=== PATIENT | female | born 1995 | race Caucasian/White ===

== ENCOUNTER 2018-09-30 14:31 | Inpatient (IN) | payer MEDICAID, OTHER ==
[~2018-09-30] VITALS: Ht 157.5 cm; Wt 87.1 kg
[2018-09-30 14:54] VITALS: Ht 157.5 cm; Wt 87.1 kg
[2018-09-30] MEDS ORDERED: PREN-93 PO (14:54)
[2018-09-30 14:55] VITALS: BP 116/74; PULSE 123; RESP 18
[2018-09-30] MEDS ORDERED: OXYTOCIN 30 UNITS/LR 500 ML IV SCH ×3 (16:30)
[2018-09-30] MEDS ORDERED: METHYLERGONOVINE 0.2 MG INJ IM PRN (16:30)
[2018-09-30] MEDS ORDERED: CARBOPROST 250 MCG INJ IM PRN (16:30)
[2018-09-30] MEDS ORDERED: IBUPROFEN 600 MG TAB PO PRN (16:30)
[2018-09-30] MEDS ORDERED: BUTORPHANOL 2 MG INJ IV PRN ×2 (16:30→18:00)
[2018-09-30] MEDS ORDERED: AMPICILLIN 2 GM/NS (PMX) 100 ML IV ONE ×2 (16:30→18:00)
[2018-09-30] MEDS ORDERED: OXYTOCIN 30 UNITS/LR 500 ML IV PRN (16:30)
[2018-09-30] MEDS ORDERED: MISOPROSTOL 200 MCG TAB PR PRN (16:30)
[2018-09-30] MEDS ORDERED: LIDOCAINE 1% (MPF) 30 ML INJ INJ PRN (16:30)
--- NOTE | 2018-09-30 16:45 | TRIAGE ---
OB Triage Datetime Report Generated by CPN: 09/30/2018 16:45 Datetime: 09/30/2018 16:33 Vaginal Exam Dilatation (cms): 2.0 Effacement (%): 70 Station: -3 Exam By: ariana Vaginal Bleeding: None Cervix, Consistency: Soft Cervix, Position: Posterior Presentation 'A': Cephalic Datetime: 09/30/2018 14:52 Assessment Type: Triage Maternal Assessment Level of Consciousness: Fully Conscious DTR's/Clonus: DTRs 2+; No Clonus Headache: Denies Blurred Vision: No Respiratory Effort: Unlabored; Regular Rhythm; Equal Expansion Breath Sounds, Left: Clear and Equal Breath Sounds, Right: Clear and Equal Nausea/Vomiting: Denies RUQ Epigastric Pain: Denies Lower Extremities Edema: None Degree: None Upper Extremities Edema: None Degree: None Facial Edema: None Fall Risk Assessment History of Falling: (0) No Secondary Diagnosis: (0) No Ambulatory Aid: (0) Bedrest/Nurse Assist IV Therapy: (0) No Gait: (0) Normal/Bedrest/Immobile Mental Status: (0) Oriented to Own Ability Fall Score: 0 Fall Risk Score Definition: No Risk: No action required Datetime: 09/30/2018 14:49 Time of Arrival: 09/30/2018 14:23 EGA: 40.6 Arrived By: Ambulatory Arrived From: Home Chief Complaint: PT. SENT IN TO BE EVAL. FOR POST DATES. Movement: Present Contractions: Denies/Absent Rupture of Membranes: Denies Vaginal Bleeding: None Vaginal Discharge: Denies Recent Sexual Intercouse: Denies Abdominal Trauma: Not Applicable Patient Complaints: None Time Provider Notified: 09/30/2018 16:25 Provider Notified: [facility] Initial Plan: GENE
--- NOTE | 2018-09-30 17:22 | HP ---
Date/Time of Note Date/Time of Note DATE: 09/30/18 TIME: 17:20 OB - History Hx of Present Free Text/Dictation 22 years old 3 para 2-0-0-2 with single intrauterine at 40 weeks and 6 days with a YAEL of 09/24/2018 sent from her primary OB office for further management for postdate. She states good movement. She denies nausea, vomiting, shortness of breath, chest pain, headache, visual changes, va ginal bleeding or LOF. Chief Complaint: Postdate Estimated Due Date: Sep 24, 2018 : 3 Para: 2 Spontaneous : 0 Therapeutic : 0 Care: Good Care Ultrasounds: Normal mid trimester US Obstetrical Complications: None Medical Complications: None Past Family/Social History * Past Medical, Surgical, Family and Obstetric Histories reviewed from chart. Rubella: immune RPR/VDRL: Negative GBS Status: Unknown HBsAG: Negative OB Admission Exam Vital Signs Vital Signs Vital Signs Date Temp Pulse Resp B/P (MAP) Pulse Ox O2 O2 Flow FiO2 Time Delivery Rate 09/30/18 98.3 123 18 116/74 Room Air 14:55 (88) Physical Exam HEENT: WNL Heart: Rhythm Normal Lungs: Clear Abdomen: WNL Cervical Dilatation: 2cm Effacement: 75% Station: -3 Membranes: Intact Heart Rate: 130's Accelerations: Accelerations Present Decelerations: No Decelerations Varibility: Moderate Contractions on Admission: 6-10 Minutes Apart Intensity: Mild OB Assessment/Plan Other plan: 22 years old -0-0-2 with single intrauterine at 40 weeks and 6 days in early labor - FHR: No sign of metabolic acidosis- Category I - Continuous EFM, toco - CBC, blood type and screen - Analgesia options with R/B/A discussed in detail with patient - Epidural per patient request - Please see the orders - Rubella: Immune - GBS: Unknown, ampicillin for GBS prophylaxis Admission, procedures, expectations, risks and possible complications have been discussed in detail with the patient. Risk of vaginal delivery including but not limited to bleeding, infection, cervical laceration, placental retention, injury to fetus, blood transfusion, blood transfusion related infection, risk of anesthesia, adhesion, cervical laceration, episiotomy/laceration, possible delivery with risk of bleeding, infection, injury to other organs (bowel, bladder, ureter, vessels, nerves), injury to fetus, blood transfusion, blood transfusion related infection, risk of anesthesia, scar and hernia formation, needs for future , removal of uterus or any other indicated surgery discussed with the patient. She expressed understanding and repeats the risks. All of her questions were answered. She signed the informed consent. PHYSICIAN'S VERIFICATION OF INFORMED CONSENT The patient was counseled regarding the procedure, its indications, risks, potential complications and alternatives and any questions were answered. Consent was obtained. PLANNED PROCEDURE/TREATMENT: Vaginal delivery, episiotomy, repair of laceration possible delivery [] MARIA ISABEL SAUNDERS September 30, 2018 17:22
[2018-09-30] MEDS: LACTATED RINGER'S 1,000 ML IV SCH (17:51)
[2018-09-30] MEDS ORDERED: AMPICILLIN 1 GM/NS (PMX) 50 ML IV SCH (20:30)
[2018-09-30] MEDS: AMPICILLIN 1 GM/NS (PMX) 50 ML IV SCH (22:27)
[2018-10-01] MEDS: LACTATED RINGER'S 1,000 ML IV SCH ×4 (01:55→11:46)
--- NOTE | 2018-10-01 02:10 | QN ---
Documentation Comment progress note labor and delivery patient seen and evaluated no complaints vs stable afebrile ab gravid, nt extremity no edema no calf tenderness ve 2-3/70/-3 intact fhr cat 1 toco irregular a/ iup at 41 wks ga, admitted for post edc induction care limited suspected macrosomia. patient declines CD for suspected macrosomia p/ patient again explained the risk of shoulder dystocia in detail and all question were answered she desire to continue with pitocin induction TIFFANY SANTOYO MD October 01, 2018 02:10
[2018-10-01] MEDS: AMPICILLIN 1 GM/NS (PMX) 50 ML IV SCH ×4 (02:28→14:52)
[2018-10-01] MEDS ORDERED: PHENYLephrine (100 MCG/ML) 10ML SYG ONE (07:00)
[2018-10-01] MEDS ORDERED: FENTAnyl 2MCG/ML-ROPIV 0.2% 100 ML ONE (10:10)
[2018-10-01] MEDS ORDERED: FENTAnyl 2MCG/ML-ROPIV 0.2% 100 ML BAG EPI SCH (10:30)
[2018-10-01] MEDS ORDERED: NALOXONE (0.4 MG/ML) INJ IV PRN (10:30)
--- NOTE | 2018-10-01 10:30 | PREAC ---
Date/Time of Note Date/Time of Note DATE: 10/01/18 TIME: 10:27 Anesthesia Eval and Record Evaluation Time Pre-Procedure Interview DATE: 10/01/18 TIME: 10:27 Age 22 Sex female NPO: 8 hrs Preoperative diagnosis Labor Pain Planned procedure Labor Epidural Past Medical History Past Medical History: Includes Heme: Anemia : : (3), Para: (2), Gestational age: (41) Surgery & Anesthesia Issues No known issue Meds Anticoagulation: No Beta Kathi within 24 hr: No Reason Beta Kathi not given: Pt. not on B-Kathi Reported Medications Vit No.124/Iron/FA ( Vitamin Tablet) 1 Each Tablet, 1 EACH PO DAILY, TAB 09/30/18 Current Medications Lactated Ringer's 1,000 ml @ 125 mls/hr Q8H IV Last administered on 10/01/18at 09:52; Admin Dose 125 MLS/HR; Start 09/30/18 at 16:29 Lidocaine (Xylocaine 1% (Mpf)) 30 ml ONCE PRN INJ .EPISIOTOMY; Start 09/30/18 at 16:30 Oxytocin/Lactated Ringer's 500 ml @ 500 mls/hr ONCE POST IV ; Start 09/30/18 at 16:30 Oxytocin/Lactated Ringer's 500 ml @ 125 mls/hr POST IV ; Start 09/30/18 at 16:30 Ibuprofen (Motrin) 600 mg ONCE PRN PO .PAIN 1-5; Start 09/30/18 at 16:30 Oxytocin/Lactated Ringer's 500 ml @ 0 mls/hr ONCE PRN IV .VAGINAL BLEEDING; Start 09/30/18 at 16:30 Methylergonovine Maleate (Methergine) 0.2 mg ONCE PRN IM .VAGINAL BLEEDING; Start 09/30/18 at 16:30 Carboprost Tromethamine (Hemabate) 250 mcg ONCE PRN IM .VAGINAL BLEEDING; Start 09/30/18 at 16:30 Misoprostol (Cytotec) 1,000 mcg ONCE PRN TX .VAGINAL BLEEDING; Start 09/30/18 at 16:30 Oxytocin/Lactated Ringer's 500 ml @ 0 mls/hr FOR INDUCTION IV Last administered on 09/30/18at 18:38; Admin Dose 2 MLS/HR; Start 09/30/18 at 16:30 Ampicillin 50 ml @ 100 mls/hr Q4H IV Last administered on 10/01/18at 09:51; Admin Dose 100 MLS/HR; Start 09/30/18 at 22:00 Butorphanol Tartrate (Stadol) 2 mg Q2H PRN IV .PAIN; Start 09/30/18 at 18:00 Meds reviewed: Yes Allergies Coded Allergies: No Known Allergy (Unverified , 09/30/18) Allergies Reviewed: Yes Labs/Studies Labs Reviewed: Reviewed by anesthesiologist Result Diagram: 09/30/18 1723 Laboratory Tests 09/30/18 17:23 Blood Bank Test 09/30/18 17:23 Antibody Screen NEGATIVE Blood Type A POSITIVE Rh Immune Globulin Candidate NO test: Positive Studies: ECG (n/a), CXR Pre-procedure Exam Last vitals Vital Signs Date Temp Pulse Resp B/P (MAP) Pulse Ox O2 O2 Flow FiO2 Time Delivery Rate 09/30/18 98.3 123 18 116/74 Room Air 14:55 (88) Airway: Adequate mouth opening, Adequate thyromental dist Mallampati: Mallampati II Teeth: Normal Lung: Normal Heart: Normal ASA Physical Status ASA physical status: 2 Emergency: None Planned Anesthetic Neuraxial: Epidural Planned Pain Management Epidural Pre-operative Attestations Prior to commencing anesthesia and surgery, the patient was re-evaluated, there was verification of: *The patient's identity *The results of appropriate recent lab work and preoperative vital signs *The above evaluation not changing prior to induction *Anesthetic plan, risk benefits, alternative and complications discussed with patient/family; questions answered; patient/family understands, accepts and wishes to proceed. HAMIDA PLASCENCIA MD October 01, 2018 10:30
--- NOTE | 2018-10-01 10:33 | PAC ---
Date/Time of Note Date/Time of Note DATE: 10/01/18 TIME: 10:33 Post-Anesthesia Notes Post-Anesthesia Note Last documented vital signs Vital Signs Date Temp Pulse Resp B/P (MAP) Pulse Ox O2 O2 Flow FiO2 Time Delivery Rate 10/01/18 98.3 123 18 116/74 100 Room Air 10:35 (88) Activity: WNL Respiratory function: WNL Cardiovascular function: WNL Mental status: Baseline Pain reasonably controlled: Yes Hydration appropriate: Yes Nausea/Vomiting absent: Yes HAMIDA PLASCENCIA MD October 01, 2018 10:33
[2018-10-01] MEDS ORDERED: MINERAL OIL LIGHT 10 ML VIAL TOP ONE (16:30)
[2018-10-01] MEDS ORDERED: OXYTOCIN 30 UNITS/LR 500 ML IV SCH (17:27)
--- NOTE | 2018-10-01 17:27 | LDN ---
Date/Time of Note Date/Time of Note DATE: 10/01/18 TIME: 17:26 Delivery Summary Weeks of Gestation 41 Placenta Delivered: Spontaneously Meconium: Light Episiotomy: No Perineal laceration: 1 Laceration repair: 1st degree perineal laceration repair wtih 4-0 chromic Estimated blood loss: 150 Sponge & Needle done & correct: Yes All needle counts correct: Yes Any foreign bodies felt in the: No Infant Delivery Information Sex Infant Sex: female Apgars 1 Minute: 9 5 Minute: 9 Suctioning Nose & mouth suctioned at nazario: No Delee suction performed: No Umbilical Cord Umbilical cord with: 3 Vessels Cord presentations: nuchal cord Nuchal cord present X: 1 Cord Blood was obtained: Yes TIFFANY SANTOYO MD October 01, 2018 17:27
[2018-10-01] MEDS ORDERED: METHYLERGONOVINE 0.2 MG INJ IM PRN (17:30)
[2018-10-01] MEDS ORDERED: LANOLIN HPA 1 PKT TOP PRN (17:30)
[2018-10-01] MEDS ORDERED: MISOPROSTOL 200 MCG TAB PR PRN (17:30)
[2018-10-01] MEDS ORDERED: OXYCODONE/ASPIRIN (4.88/325) TAB PO PRN ×2 (17:30)
[2018-10-01] MEDS ORDERED: OXYTOCIN 30 UNITS/LR 500 ML IV PRN (17:30)
[2018-10-01] MEDS ORDERED: CARBOPROST 250 MCG INJ IM PRN (17:30)
[2018-10-01] MEDS ORDERED: ONDANSETRON 4 MG INJ IV PRN (17:30)
[2018-10-01] MEDS ORDERED: DIPHENHYDRAMINE 25 MG CAP PO PRN (17:30)
[2018-10-01] MEDS ORDERED: ACETAMINOPHEN 325 MG TAB PO PRN (17:30)
[2018-10-01] MEDS ORDERED: WITCH HAZEL/GLYCERIN PAD PR PRN (17:30)
[2018-10-01] MEDS ORDERED: NACL 0.9% 3 ML SYG IV SCH (17:30)
[2018-10-01] MEDS: IBUPROFEN 600 MG TAB PO SCH ×2 (18:00→23:44)
[2018-10-01 19:15] VITALS: BP 136/81; PULSE 91; RESP 18
[2018-10-01] MEDS ORDERED: BENZOCAINE 20% 56 ML SPRAY TOP PRN (21:00)
[2018-10-01] MEDS: SENNA/DOCUSATE NA (8.6MG/50MG) TAB PO SCH (21:07)
[2018-10-02] VITALS: BP 115/67; PULSE 91; RESP 18
[2018-10-02 04:01] VITALS: BP 112/70; PULSE 101; RESP 18
[2018-10-02] MEDS: IBUPROFEN 600 MG TAB PO SCH ×4 (05:27→23:54)
[2018-10-02 08:05] VITALS: BP 109/60; PULSE 78; RESP 14
--- NOTE | 2018-10-02 08:17 | DS ---
Date/Time of Note Date/Time of Note DATE: 10/02/18 TIME: 08:16 Obstetrical Discharge Record Final Diagnosis Final Diagnosis: Term delivered Vaginal Delivery Obstetrical Delivery: Spontaneous, Laceration, Repaired Condition on Discharge Physical Assessment Last Vitals: stable afebrile Voiding: Yes Bowel Movement: Yes Breast: Soft, non-tender, Filling Fundus: Firm Abdomen and Incision: soft nt Calf Tenderness: No Patient Condition: Fair TIFFANY SANTOYO MD October 02, 2018 08:17
--- NOTE | 2018-10-02 08:18 | PD.PPDC ---
CERTIFICATION OFFICER Discharge Instruction Condition [id number] Patient Condition: [id number] Fair Diet [id number] Diet: [id number] Resume Regular Diet Activity/Restrictions [id number] Activity: [id number] Normal Activity May Shower [id number] Restrictions: [id number] No Exercising No Lifting No Driving No Sexual Activity Nothing in the Vagina No [place] No Tampons, douche Follow-up Follow-up with Physician: 3, Week/Weeks Return to clinic for [id number] [employer] Instructions: Vtort1x Fever greater than 101 Chills Worsening abdominal pain Excessive Vaginal Bleeding More than 2 pads per hour Unable to tolerate diet [id number] OB Instructions: Tjimy1g Breast Tenderness Depression Blurried Vision Headache [id number] Surgical Instructions: Cuolh0r Incisional Drainage Incisional Redness TIFFANY SANTOYO MD October 02, 2018 08:18
[2018-10-02] MEDS: SENNA/DOCUSATE NA (8.6MG/50MG) TAB PO SCH ×2 (09:57→21:16)
[2018-10-02 12:48] VITALS: BP 116/81; PULSE 80; RESP 16
[2018-10-02 15:35] VITALS: BP 103/56; PULSE 74; RESP 16
[2018-10-02 19:45] VITALS: BP 113/66; PULSE 69; RESP 18
[2018-10-03 04:03] VITALS: BP 116/81; PULSE 73; RESP 18
[2018-10-03] MEDS: IBUPROFEN 600 MG TAB PO SCH ×2 (05:37→12:59)
[2018-10-03 08:30] VITALS: BP 106/62; PULSE 71; RESP 17
[2018-10-03] MEDS: SENNA/DOCUSATE NA (8.6MG/50MG) TAB PO SCH (09:03)
--- NOTE | 2018-10-04 15:23 | DELSUM ---
Delivery Summary A-C Datetime Report Generated by CPN: 10/04/2018 15:22 DELIVERY PERSONNEL Bronc Buster: Lucille Dowd MATERNAL INFORMATION Delivery Anesthesia: Epidural Medications in Delivery: Pitocin 30 units in LR Delivery QBL (ml): 150 Placenta Cultured: No Maternal Complications: None Other Maternal Complications: POST DATE LABOR SUMMARY EDC: 09/24/2018 00:00 No. Babies in Womb: 1 Attempted: No Labor Anesthesia: Epidural LABOR INFORMATION Reason for Induction: Postterm Onset of Labor: 10/01/2018 06:10 Complete Dilatation: 10/01/2018 16:53 Oxytocin: Induction Group B Beta Strep: Not Done Antibiotics # of Doses: Ampicillin Steroids Given: None Reason Steroids Not Administered: Not Applicable MEMBRANES Membranes Rupture Method: Artificial Rupture of Membranes: 10/01/2018 16:54 Length of Rupture (hr): 0.08 Amniotic Fluid Color: Clear Amniotic Fluid Amount: Moderate Amniotic Fluid Odor: None STAGES OF LABOR Stage 1 hr: 10 Stage 1 min: 43 Stage 2 hr: 0 Stage 2 min: 6 Stage 3 hr: 0 Stage 3 min: 3 Total Time in Labor hr: 10 Total Time in Labor min: 52 VAGINAL DELIVERY Episiotomy: None Laceration Extension: First Degree Laceration Type: Perineal Laceration Repair: Yes Initial Vag Sponge Count: 10 Final Vag Sponge Count: 10 Initial Vag Sharps Count: 2 Final Vag Sharps Count: 2 Sponge Count Correct: Yes Sharps Count Correct: Yes BABY A INFORMATION Infant Delivery Date/Time: 10/01/2018 16:59 Method of Delivery: Vaginal Born in Route : Yes : N/A Forceps: N/A Vacuum Extraction: N/A Shoulder Dystocia : No SHOULDER DYSTOCIA BABY A Infant Delivery Date/Time: 10/01/2018 16:59 PRESENTATION/POSITION BABY A Presentation: Cephalic Cephalic Presentation: Vertex Vertex Position: Left Occipital Anterior Breech Presentation: N/A PLACENTA INFORMATION BABY A Placenta Delivery Time : 10/01/2018 17:02 Placenta Method of Delivery: Spontaneous Placenta Status: Delivered SCORES BABY A Heart Rate 1 min: >100 bpm Resp Effort 1 min: Good Cry Reflex Irritability 1 min: Cough/Sneeze/Pulls Away Muscle Tone 1 min: Active Motion Color 1 min: Body [place], Extremit Blue Resuscitation Effort 1 min: Tactile Stimulation SCORE 1 MIN: 9 Heart Rate 5 min: >100 bpm Resp Effort 5 min: Good Cry Reflex Irritability 5 min: Cough/Sneeze/Pulls Away Muscle Tone 5 min: Active Motion Color 5 min: Body [place], Extremit Blue Resuscitation Effort 5 min: Tactile Stimulation SCORE 5 MIN: 9 INFANT INFORMATION BABY A Gestational Age at Delivery: 41.0 Gestational Status: Late Term- 41- 41.6 Weeks Infant Outcome : Liveborn Condition : Stable Sex: Female IDENTIFICATION/MEDS BABY A ID Band Number: [id number] ID Band Location: Right Leg; Left Arm Sensor Applied: Yes Sensor Number: [id number] Sensor Location : Cord Clamp Vitamin K Given : Not Given Erythromycin Given: Not Given WEIGHT/LENGTH BABY A Infant Birthweight (gm): 3730 Weight (lb): 8 Weight (oz): 4 Length (in): 20.00 Infant Length (cm): 50.80 CORD INFORMATION BABY A No. Cord Vessels: 3 Nuchal Cord : Around Neck x1, Loose Cord Blood Taken: Yes ASSESSMENT BABY A Infant Complications: None Physical Findings at Delivery: Within Normal Limits Infant Respirations: Appears Normal Neon Technician/ALS Called : No Care By: Amy YODER Transferred To: Remains with Mother
== END 2018-10-03 15:20 | disposition home or self-care (01) | DRG 807 ==
LOC: OBT 14:31 → L-D 14:31 → OBT 16:20 → L-D 16:20 → PP1 10-01 19:16
PROVIDERS: ADMIT Obstetrics & Gynecology; ATTEND Obstetrics & Gynecology
PROC: 10E0XZZ Delivery of Products of Conception, External Approach (ICD-10-PCS; principal; 2018-10-01)
PROC: 0HQ9XZZ Repair Perineum Skin, External Approach (ICD-10-PCS; 2018-10-01)
DX: O48.0 Post-term pregnancy (principal); Z37.0 Single live birth; O77.0 Labor and delivery complicated by meconium in amniotic fluid; O70.0 First degree perineal laceration during delivery; O36.63X0 Maternal care for excessive fetal growth, third trimester, not applicable or unspecified; O69.81X0 Labor and delivery complicated by cord around neck, without compression, not applicable or unspecified; O99.02 Anemia complicating childbirth; D64.9 Anemia, unspecified; Z3A.40 40 weeks gestation of pregnancy
CPT/HCPCS: 62322; 76815; 76818; 80307; 85025; 85610; 85730; 86592; 86703; 86762; 86850; 86900; 86901; 87340; 99464; G0463; J0290; J2210; J2370; J2590; J3010; J7120